=== PATIENT | male | born 1980 ===

== ENCOUNTER 2021-08-30 21:27 | Emergency (ER) | payer SELFPAY ==
[~2021-08-30] VITALS: Ht 190.5 cm; Wt 100.0 kg
[2021-08-30 21:34] VITALS: BP 134/85
== END 2021-08-30 22:41 | disposition left against medical advice (07) ==
LOC: ER 21:29
DX: Z53.21 Procedure and treatment not carried out due to patient leaving prior to being seen by health care provider (principal)